=== PATIENT | male | born 1950 | race Hispanic/Latino ===

== ENCOUNTER → 2018-11-01 | Outpatient (CLI) | payer MEDICARE, SELFPAY | END | disposition home or self-care (01) | LOC: RAH 14:09 | PROVIDERS: ATTEND Internal Medicine | DX: J44.9 Chronic obstructive pulmonary disease, unspecified (principal) | CPT/HCPCS: 71046 ==

== ENCOUNTER → 2018-11-15 | Outpatient (CLI) | payer MEDICARE, SELFPAY ==
[~2018-11-15] MED LIST: ALBUTEROL SULFATE 0.083% 2.5 MG/3 ML INH IH ONE
== END | disposition home or self-care (01) ==
LOC: RESP 08:25
PROVIDERS: ATTEND Internal Medicine
DX: J44.9 Chronic obstructive pulmonary disease, unspecified (principal)
CPT/HCPCS: 94060; 94727; 94729

== ENCOUNTER → 2024-10-08 | Outpatient (CLI) | payer OTHER, MEDICARE ==
[~2024-10-08] MED LIST changes: -ALBUTEROL SULFATE 0.083% 2.5 MG/3 ML INH IH ONE; +IOHEXOL 350 MG/ML 100ML INFUS..BTL IV ONE
--- NOTE | 2024-10-09 10:29 | HMCIMG ---
EXAM: CT Urography Without and With Contrast CLINICAL HISTORY: Gross hematuria. TECHNIQUE: Thin collimated axial CT urography images of the abdomen and pelvis without and with contrast were obtained with sagittal and coronal reformatted images also submitted. CT scan is done according to ALARA (As Low As Reasonably Achievable). COMPARISON: None. FINDINGS: Unremarkable visualized lung parenchyma. No focal abnormality within the pancreas, spleen and adrenal glands. Mild diffuse fatty infiltration of the liver. Tiny gallbladder calculi versus sludge. Both kidneys are normal in size, shape, contour, and position. No renal, ureteric, or bladder calculus or mass. Tiny concretions in the left kidney. Bilateral multiple BOSNIAK type I renal cortical cysts measuring up to 5.6 cm at the upper pole of the right kidney. No hydroureteronephrosis. Ludmila-renal and para-renal spaces appear grossly normal. CT Nephrogram is normal bilaterally. There is no obvious bowel wall thickening. Bowel loops are normal in caliber without evidence of obstruction or ileus. The appendix is normal. There is no abnormality within the urinary bladder. Mild prostatomegaly with nodular appearance and a small calcification. Scattered atherosclerotic plaques and wall calcifications in the aorta and its branches. No significant narrowing. No lymphadenopathy. No free fluid. There is no acute osseous abnormality. IMPRESSION: No acute process in the abdomen and pelvis. Bilateral BOSNIAK type I renal cortical cysts. No renal or ureteric calculus. Mild prostatomegaly with nodular appearance and a small calcification. Mild diffuse fatty infiltration of the liver. Tiny gallbladder calculi versus sludge. /Lexi
== END | disposition home or self-care (01) ==
LOC: RAH 07:07
PROVIDERS: ATTEND Family Medicine
DX: K76.0 Fatty (change of) liver, not elsewhere classified (principal); N28.1 Cyst of kidney, acquired; N40.0 Benign prostatic hyperplasia without lower urinary tract symptoms; I70.0 Atherosclerosis of aorta; R31.0 Gross hematuria
CPT/HCPCS: 74178; Q9967